=== PATIENT | male | born 1970 | race Caucasian/White ===

== ENCOUNTER 2021-02-16 09:54 | Emergency (ER) | payer BC ==
[2021-02-16] MEDS ORDERED: Sodium Chloride 0.9% 1000 ML 1,000 ML IV STA (10:14)
[2021-02-16] MEDS ORDERED: Hydromorphone 1 mg/ml Injection IV ONE (10:14)
[2021-02-16] MEDS ORDERED: Zofran 4 MG/2 ML VIAL IV ONE (10:14)
[2021-02-16] MEDS ORDERED: TORAdol 30 mg Injection IV ONE (10:14)
--- NOTE | 2021-02-16 10:14 | ERPHSYRPT ---
- History of Present Illness Time Seen by Provider: 02/16/21 10:05 Historian: patient, family Exam Limitations: clinical condition Patient Subjective Stated Complaint: L sided abd/flank pain onset this am Triage Nursing Assessment: pt to ED c/o L sided abd/flank pain onset 0720 this am. pain woke pt from rest. was given 20 mg omeprazole OTC, zofran, and norco 5 mg at home at 0745 with no relief. pt appears restless and diaphoretic. skin cool and moist. rates 10/10 pain sharp. 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 Physician History: This is a 50-year-old white male who has no known history of nephrolithiasis and presents with sudden onset of left flank pain which is radiating down to his left groin. Patient did take his usual omeprazole and added Newton for the pain. He had one episode of vomiting secondary to pain. Patient arrives to the emergency department with significant, writhing pain. He has no shortness of breath and no chest pain. Timing/Duration: today Activities at Onset: none Quality: cramping, stabbing Abdominal Pain Onset Location: flank (Left) Pain Radiation: groin (Left) Severity of Pain-Max: moderate Severity of Pain-Current: moderate Modifying Factors: Improves With: nothing Associated Symptoms: nausea, vomiting Previous symptoms: no prior history Allergies/Adverse Reactions: No Known Drug Allergies Allergy (Unverified 02/16/21 10:00) Home Medications: Omeprazole 20 mg PO DAILY 02/16/21 [History] Hx Tetanus, Diphtheria Vaccination/Date Given: No (unknown) Hx Influenza Vaccination/Date Given: Yes Hx Pneumococcal Vaccination/Date Given: No Immunizations Up to Date: Yes Travel Risk - International Travel Have you traveled outside of the country in past 3 weeks: No - Coronavirus Screening Are you exhibiting any of the following symptoms?: Yes Symptoms: Vomiting/Diarrhea Close contact with a COVID-19 positive Pt in past 14-21 Days: No - Vaccine Status Have you recieved a Covid-19 vaccination: Yes Art Psychotherapist Or Therapist: Moderna - Vaccination Dates Date of 2cond Vaccination (if applicable): december - Review of Systems Constitutional: No Symptoms Eyes: No Symptoms Ears, Nose, & Throat: No Symptoms Respiratory: No Symptoms Abdominal/Gastrointestinal: No Symptoms Genitourinary Symptoms: Flank Pain (Left) Musculoskeletal: No Symptoms Skin: No Symptoms Neurological: No Symptoms Psychological: No Symptoms Endocrine: No Symptoms Hematologic/Lymphatic: No Symptoms Immunological/Allergic: No Symptoms All Other Systems: Reviewed and Negative - Past Medical History Pertinent Past Medical History: Yes Other Medical History: stomach ulcer, takes OTC meds for this - Past Surgical History Past Surgical History: Yes Gastrointestinal: Cholecystectomy - Social History Smoking Status: Current every day smoker How long have you smoked: years Exposure to second hand smoke: No Drug Use: none Patient Lives Alone: No - Nursing Vital Signs Nursing Vital Signs: Initial Vital Signs Temperature 98.5 F 02/16/21 10:01 Pulse Rate 89 02/16/21 10:01 Respiratory Rate 18 02/16/21 10:01 Blood Pressure 171/120 02/16/21 10:01 O2 Sat by Pulse Oximetry 100 02/16/21 10:01 Pain Scale Pain Intensity 10 - Physical Exam General Appearance: mild distress, alert, anxiety Eye Exam: PERRL/EOMI, eyes nml inspection Ears, Nose, Throat Exam: normal ENT inspection, moist mucous membranes Neck Exam: normal inspection, non-tender, supple, full range of motion Respiratory Exam: normal breath sounds, lungs clear, airway intact, No chest tenderness, No respiratory distress Cardiovascular Exam: regular rate/rhythm, normal heart sounds, normal peripheral pulses Gastrointestinal/Abdomen Exam: soft, normal bowel sounds, tenderness Rectal Exam: not done Back Exam: normal inspection, normal range of motion, No CVA tenderness, No ve rtebral tenderness Extremity Exam: normal inspection, normal range of motion, pelvis stable Neurologic Exam: alert, oriented x 3, cooperative, 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, normal mood/affect, nml cerebellar function, nml station & gait, sensation nml Skin Exam: normal color, warm, dry Lymphatic Exam: No adenopathy SpO2 Interpretation: normal SpO2: 100 O2 Delivery: Room Air - Course Nursing assessment & vital signs reviewed: Yes Ordered Tests: Active Orders 24 hr Category Date Time Status IV Insertion STAT Care 02/16/21 10:14 Active ABDOMEN AND PELVIS W/0 CONTRAS [CT] Stat Exams 02/16/21 11:34 Completed AMYLASE Stat Lab 02/16/21 10:29 Completed CBC W DIFF Stat Lab 02/16/21 10:29 Completed CMP Stat Lab 02/16/21 10:29 Completed CULTURE,URINE Stat Lab 02/16/21 11:47 Received LIPASE Stat Lab 02/16/21 10:29 Completed Lactic Acid Stat Lab 02/16/21 10:29 Completed UA W/RFX UR CULTURE Stat Lab 02/16/21 11:47 Completed Medication Summary Discontinued Medications Generic Name Dose Route Start Last Admin Trade Name Freq PRN Reason Stop Dose Admin Hydromorphone HCl 1 mg 02/16/21 10:14 02/16/21 10:34 Hydromorphone 1 Mg/Ml Injection IV 02/16/21 10:15 1 mg STAT ONE Administration Hydromorphone HCl Confirm 02/16/21 10:17 Hydromorphone 1 Mg/Ml Injection Administered 02/16/21 10:18 Dose 1 mg .ROUTE .STK-MED ONE Sodium Chloride 1,000 mls @ 999 mls/hr 02/16/21 10:14 02/16/21 10:35 Sodium Chloride 0.9% 1000 Ml IV 02/16/21 11:14 999 mls/hr .Q1H1M STA Administration Sodium Chloride Confirm 02/16/21 10:17 Sodium Chloride 0.9% 1000 Ml Administered 02/16/21 10:18 Dose 1,000 mls @ ud .ROUTE .STK-MED ONE Ketorolac Tromethamine 30 mg 02/16/21 10:14 02/16/21 10:35 Toradol 30 Mg Injection IV 02/16/21 10:15 30 mg STAT ONE Administration Ketorolac Tromethamine Confirm 02/16/21 10:17 Toradol 30 Mg Injection Administered 02/16/21 10:18 Dose 30 mg .ROUTE .STK-MED ONE Ondansetron HCl 4 mg 02/16/21 10:14 02/16/21 10:35 Zofran 4 Mg/2 Ml Vial IV 02/16/21 10:15 4 mg STAT ONE Administration Ondansetron HCl Confirm 02/16/21 10:16 Zofran 4 Mg/2 Ml Vial Administered 02/16/21 10:17 Dose 4 mg .ROUTE .STK-MED ONE Lab/Rad Data: Laboratory Result Diagrams 02/16/21 10:29 02/16/21 10:29 Laboratory Results 02/16/21 02/16/21 02/16/21 Range/Units 11:47 10:29 10:29 WBC (4.0-10.5) K/mm3 RBC (4.1-5.6) M/mm3 Hgb (12.5-18.0) gm/dl Hct (42-50) % MCV (78-100) fl MCH (26-32) pg MCHC (32-36) g/dl RDW (11.5-14.0) % Plt Count (150-450) K/mm3 MPV (7.5-11.0) fl Gran % (36.0-66.0) % Eos # (Auto) (0-0.5) Absolute Lymphs (auto) (1.0-4.6) Absolute Monos (auto) (0.0-1.3) Lymphocytes % (24.0-44.0) % Monocytes % (0.0-12.0) % Eosinophils % (0.00-5.0) % Basophils % (0.0-0.4) % Absolute Granulocytes (1.4-6.9) Basophils # (0-0.4) Sodium 141 (137-145) mmol/L Potassium 3.7 (3.5-5.1) mmol/L Chloride 105 (98-107) mmol/L Carbon Dioxide 22 (22-30) mmol/L Anion Gap 17.1 H (5-15) MEQ/L BUN 11 (9-20) mg/dL Creatinine 1.02 (0.66-1.25) mg/dL Estimated GFR > 60.0 ML/MIN Glucose 127 H (74-106) mg/dL Lactic Acid 2.5 H (0.4-2.0) Calcium 10.0 (8.4-10.2) mg/dL Total Bilirubin 0.80 (0.2-1.3) mg/dL AST 27 (17-59) U/L ALT 25 (0-50) U/L Alkaline Phosphatase 91 (38-126) U/L Serum Total Protein 8.2 (6.3-8.2) g/dL Albumin 4.8 (3.5-5.0) g/dL Amylase 159 H (30-110) U/L Lipase 536 H (23-300) U/L Urine Color YELLOW (YELLOW) Urine Appearance SLIGHTLY CLOUDY (CLEAR) Urine pH 5.0 (5-6) Ur Specific [place] 1.030 (1.005-1.025) Urine Protein 30 (Negative) Urine Ketones SMALL (NEGATIVE) Urine Blood MODERATE (0-5) [place]/ul Urine Nitrite NEGATIVE (NEGATIVE) Urine Bilirubin NEGATIVE (NEGATIVE) Urine Urobilinogen NEGATIVE (0-1) mg/dL Ur Leukocyte Esterase NEGATIVE (NEGATIVE) Urine WBC (Auto) 0-2 (0-5) /HPF Urine RBC (Auto) 26-50 (0-2) /HPF U Epithel Cells (Auto) NONE (FEW) /HPF Urine Bacteria (Auto) RARE (NEGATIVE) /HPF Urine Mucus (Auto) MANY (NEGATIVE) /HPF Urine Culture Reflexed YES (NO) Urine Glucose NEGATIVE (NEGATIVE) mg/dL 02/16/21 Range/Units 10:29 WBC 11.3 H (4.0-10.5) K/mm3 RBC 5.11 (4.1-5.6) M/mm3 Hgb 16.3 (12.5-18.0) gm/dl Hct 47.6 (42-50) % MCV 93.2 (78-100) fl MCH 31.9 (26-32) pg MCHC 34.2 (32-36) g/dl RDW 13.4 (11.5-14.0) % Plt Count 330 (150-450) K/mm3 MPV 9.9 (7.5-11.0) fl Gran % 73.0 H (36.0-66.0) % Eos # (Auto) 0.05 (0-0.5) Absolute Lymphs (auto) 2.17 (1.0-4.6) Absolute Monos (auto) 0.81 (0.0-1.3) Lymphocytes % 19.1 L (24.0-44.0) % Monocytes % 7.1 (0.0-12.0) % Eosinophils % 0.4 (0.00-5.0) % Basophils % 0.4 (0.0-0.4) % Absolute Granulocytes 8.27 H (1.4-6.9) Basophils # 0.04 (0-0.4) Sodium (137-145) mmol/L Potassium (3.5-5.1) mmol/L Chloride (98-107) mmol/L Carbon Dioxide (22-30) mmol/L Anion Gap (5-15) MEQ/L BUN (9-20) mg/dL Creatinine (0.66-1.25) mg/dL Estimated GFR ML/MIN Glucose (74-106) mg/dL Lactic Acid (0.4-2.0) Calcium (8.4-10.2) mg/dL Total Bilirubin (0.2-1.3) mg/dL AST (17-59) U/L ALT (0-50) U/L Alkaline Phosphatase (38-126) U/L Serum Total Protein (6.3-8.2) g/dL Albumin (3.5-5.0) g/dL Amylase (30-110) U/L Lipase (23-300) U/L Urine Color (YELLOW) Urine Appearance (CLEAR) Urine pH (5-6) Ur Specific [place] (1.005-1.025) Urine Protein (Negative) Urine Ketones (NEGATIVE) Urine Blood (0-5) Hong/ul Urine Nitrite (NEGATIVE) Urine Bilirubin (NEGATIVE) Urine Urobilinogen (0-1) mg/dL Ur Leukocyte Esterase (NEGATIVE) Urine WBC (Auto) (0-5) /HPF Urine RBC (Auto) (0-2) /HPF U Epithel Cells (Auto) (FEW) /HPF Urine Bacteria (Auto) (NEGATIVE) /HPF Urine Mucus (Auto) (NEGATIVE) /HPF Urine Culture Reflexed (NO) Urine Glucose (NEGATIVE) mg/dL - Progress Progress: improved, pain not gone completely, re-examined Progress Note: 02/16/21 12:27 CAT scan of the abdomen pelvis without contrast shows a 4 to 5 mm distal left ureteral calculus approximate 1 cm proximal to the UVJ. There is mild hydroneph rosis and mild perinephric edema. There is also minimally prominent left ureter. Counseled pt/family regarding: lab results, diagnosis, need for follow-up, rad results - Departure Departure Disposition: Home Clinical Impression: Left ureteral calculus Condition: Stable Critical Care Time: No Referrals: Provider,Unknown [Primary Care Provider] - Additional Instructions: Drink plenty of fluids. Take ibuprofen 600 mg with food 3 times a day for the next 5 days. Follow-up with urologist for persistent symptoms. Return to the emergency department if symptoms recur. Prescriptions: Hydrocodone/APAP 5/325 [Newton 5/325 mg] 1 each PO Q8H PRN PRN #8 tablet MDD 3 PRN Reason: Pain
[2021-02-16] MEDS ORDERED: Zofran 4 MG/2 ML VIAL ONE (10:16)
[2021-02-16] MEDS ORDERED: Hydromorphone 1 mg/ml Injection ONE (10:17)
[2021-02-16] MEDS ORDERED: Sodium Chloride 0.9% 1000 ML 1,000 ML ONE (10:17)
[2021-02-16] MEDS ORDERED: TORAdol 30 mg Injection ONE (10:17)
[2021-02-16 10:45] LABS: Absolute Neutrophil Ct (ANC) 8.27 (1.4-6.9); BASOPHIL % 0.4 % (0.0-0.4); Basophil (Absolute #) 0.04 (0-0.4); Eosinophil % 0.4 % (0.00-5.0); Eosinophil (Absolute #) 0.05 (0-0.5); Hematocrit 47.6 % (42-50); Hemoglobin 16.3 gm/dl (12.5-18.0); Lymphocyte (Absolute #) 2.17 (1.0-4.6); Lymphocytes % 19.1 % (24.0-44.0); Mean Cell Volume 93.2 fl (78-100); Mean Corpuscular Hemoglobin 31.9 pg (26-32); Mean Corpuscular Hgb Concent. 34.2 g/dl (32-36); Mean Platelet Volume 9.9 fl (7.5-11.0); Monocyte (Absolute #) 0.81 (0.0-1.3); Monocytes % 7.1 % (0.0-12.0); Platelet Count 330 K/mm3 (150-450); Red Blood Count 5.11 M/mm3 (4.1-5.6); Red Cell Distribution Width 13.4 % (11.5-14.0); White Blood Count 11.3 K/mm3 (4.0-10.5)
[2021-02-16 10:55] LABS: ALBUMIN 4.8 g/dL (3.5-5.0); ALKALINE PHOSPHATASE 91 U/L (38-126); AMYLASE 159 U/L (30-110); ANION GAP 17.1 MEQ/L (5-15); BLOOD UREA NITROGEN 11 mg/dL (9-20); CHLORIDE 105 mmol/L (98-107); Carbon Dioxide 22 mmol/L (22-30); Creatinine 1 1.02 mg/dL (0.66-1.25); EST GLOMERULAR FILTRATION RATE > 60.0 ML/MIN; Glucose 127 mg/dL (74-106); LIPASE 536 U/L (23-300); Potassium 3.7 mmol/L (3.5-5.1); SGOT/AST 27 U/L (17-59); SGPT/ALT 25 U/L (0-50); SODIUM 141 mmol/L (137-145); Total Protein 8.2 g/dL (6.3-8.2)
[2021-02-16 12:03] LABS: Appearance SLIGHTLY CLOUDY (CLEAR); Leukocyte Esterase NEGATIVE (NEGATIVE); Nitrite NEGATIVE (NEGATIVE); Protein,Urine Dip 30 (Negative)
[2021-02-16 12:04] LABS: Bacteria RARE /HPF (NEGATIVE); Bilirubin NEGATIVE (NEGATIVE); Blood MODERATE Ery/ul (0-5); Glucose NEGATIVE (NEGATIVE); Ketones SMALL (NEGATIVE); Mucus MANY /HPF (NEGATIVE); RBC 26-50 /HPF (0-2); Urobilinogen NEGATIVE mg/dL (0-1); WBC 0-2 /HPF (0-5)
--- NOTE | 2021-02-16 12:15 | XRAY ---
Indication: Left flank pain. Multiple contiguous images obtained through the abdomen and pelvis without contrast using renal stone protocol Comparison: None Lung bases demonstrates minimal dependent atelectasis. 4 mm indeterminant left lower lobe noncalcified nodule. No infiltrate or effusion. Heart not enlarged. There is a 4-5 mm distal left ureteral calculus approximately 1 cm proximal to the UVJ. Proximal left ureter is minimally prominent along with mild left renal edema and mild hydronephrosis consistent with obstructive uropathy. No other renal calculus. Noncontrasted stomach and bowel loops nonobstructed. Minimal scattered radiopacities throughout the stomach and small bowel loops presumed ingested medication/bismuth. Normal appendix. Previous cholecystectomy. Mild fatty liver. No free fluid/air. Remaining liver, pancreas, spleen, adrenal glands, kidneys, ureters, and bladder are unremarkable for noncontrast exam. Minimal scattered aortoiliac calcifications without AAA. Osseous structures intact with mild dextroscoliosis centered at thoracolumbar junction. No ventral or inguinal hernias. Impression: 1. 4-5 mm distal left ureteral calculus producing obstructive uropathy as detailed. 2. Incidental fatty liver and dextroscoliosis. 3. Indeterminant left lower lobe 4 mm noncalcified lung nodule. Outside comparison studies recommended if available. If not, CT chest recommended to establish Baseline with follow-up per Fleischner guidelines.
[2021-02-16 12:48] VITALS: BP 160/101; PULSE 86; O2SAT 98
== END 2021-02-16 12:50 | disposition home or self-care (01) ==
LOC: ED 09:54
DX: N13.2 Hydronephrosis with renal and ureteral calculous obstruction (principal)
CPT/HCPCS: 36415; 74176; 80053; 81001; 82150; 83605; 83690; 85025; 87086; 96360; 96374; 96375; 99284; J1170; J1885; J2405